=== PATIENT | female | born 1990 | race Caucasian/White ===

== ENCOUNTER 2020-03-06 10:35 | Inpatient (IN) | payer OTHER ==
[~2020-03-06] VITALS: Ht 167.6 cm; Wt 81.6 kg
--- NOTE | ~2020-03-06 | CON ---
[address] [address] CONSULTATION Name: MOUNIKAJOON Room: [place] [address] ADM IN M.Hollie.#: [id number] Admission: 03/06/20 Attend Phys: Edwar Bales MD Discharge: Date of : 86 Report #: [id number] THIS REPORT FOR: //name// cc: [facility] - Clinic physician unknown [facility] - Clinic physician unknown ~ THIS REPORT FOR: //name// CC: Edwar Bales [facility] unknown [facility] DATE OF SERVICE: 03/06/2020 HISTORY OF PRESENT ILLNESS: This is a 30-year-old female patient who was evaluated by me for the possibility of stroke. The patient was discussed with the Emergency Room physician on the phone and then subsequently I came and saw the patient. Other history is variable to me. She tells me that she had speech difficulty as well as right-sided weakness and numbness. She was slow to respond and she was confused and disoriented. I got a history that she was aphasic that time. I am not totally certain about that, but she was definitely confused and had speech difficulty. She provided different history to different individuals. She says all her speech difficulty or any confusion she may has resolved. Her symptoms in the right side is better, but she does not feel completely back to normal. She has a recent diagnosis of COVID. She has been on Xarelto. This is for some blood clot according to her. She has a question of near blacking out. REVIEW OF SYSTEMS: A 14-point review of systems was carried out and according to her, it has been unremarkable except for the present symptomatology and COVID. She does admit to some anxiety. She says she is not on any medication for that. That was a relevant 14-point review of system. PAST MEDICAL HISTORY: Positive for COVID, positive test recently. FAMILY HISTORY: Unremarkable. SOCIAL HISTORY: She does drink alcohol. PHYSICAL EXAMINATION: The patient's examination indicates she is alert, responsive. Her speech looks completely intact to me. She is oriented. Cranial nerve examination; she takes a long time to do the visual field, but I think they are intact the best I can tell and I do not find any definite abnormality. 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 She said she has a normal [place] [address] CONSULTATION Name: JOON RIBERA Room: [address] IN [facility]#: [id number] Admission: 03/06/20 Attend Phys: Edwar Bales MD Discharge: Date of : 86 Report #: [id number] symmetrical. Plantars are mute. There is no cerebellar sign. I did not look at the patient's fundus. Blood pressure is 131/97, respirations 12, pulse is 94, temperature is 98.6. LABORATORY DATA: White count is 8.6. test is negative. IMPRESSION: It is a pretty unusual symptom, which is resolving. The possibility of TIA was considered. I had talk to Emergency Room physician and he was going to do a CT angiogram once after excluding the . That was done. That is basically unremarkable. This patient is not a TPA candidate because she is on anticoagulation. There is nothing to do thrombectomy because no thrombus is found. I am not certain this patient even had a TIA, although it is difficult to exclude if possible. We will get an MRI of the brain. Since she is complaining of arm symptom will get MRI of the C-spine also, they have to follow some COVID protocols and we will see if they can do it. Basically, we will observe this patient at the moment and we will also get await rest of the workup. Dr. Vang will follow up this patient with you from tomorrow. Thank you very much for this referral. By: [id number] MD /aylin
--- NOTE | ~2020-03-06 | EMS ---
[facility] [address] [place] [address] EMS Patient Care Report Name: JOON RIBERA Room: [place] [address] ADM IN M.R.#: [id number] Admission: 03/06/20 Attend Phys: Edwar Bales MD Discharge: Date of : 86 Report #: [id number] THIS REPORT FOR: //name// Report Transmitted: 03/06/2020 12:26 EMS Care Summary GONZALES Ginny RALPH Incident [id number] @ 03/06/2020 10:10 Incident Location [address] [place] [address] [place] [address] Patient JOON RIBERA Female, 30 Years 1990 Patient Address [address] [place] [address] Patient History Other venous embolism and thrombosis, Patient Allergies No known allergies, Chief Complaint Change in responsiveness Disposition Transported No Lights/[place] Dispatch Reason Stroke/CVA Transported To [facility] Narrative Dispatched to address noted for possible stroke. [facility] en route at time noted. Arrived and found female patient in the drivers seat of her car. The patients mother was on scene and stated that her daughter was, "Not acting right". Patient was alert and had a blank stare and was responsive to questions but slowly and with what appeared to be effort. Patient stated that she was sitting in her car and suddenly felt a sharp pain move up her right leg into her back and then into her arm. Patient stated that no she is having difficulty [facility] [address] [place] [address] EMS Patient Care Report Name: JOON RIBERA Room: [place] [address] ADM IN ..#: [id number] Admission: 03/06/20 Attend Phys: Edwar Bales MD Discharge: Date of : 86 Report #: [id number] moving that side of her body and it hurts as well. Patient was negative for any obvious stroke scale indicators and had clear speech. Patient was able to ambulance to stretcher with a stand and pivot and was moved to ambulance after buckled where placed. Once in ambulance, it was agreed on by family and patient that we should transport to the [facility] that has a stroke center, which was [facility], due to [facility] being on high volume. Patient had intact coordination, weakness and pain upon raising her right leg an nystagmus noted when gazing right. Patient stated it was hard for her to move her eyes to the right. Vitals where taken and IV was obtained as noted. Patient stated that when this happened she noticed a glitter like visual disturbance as well. patient stated she was placed on blood thinners on tuesday for a new found, small clot in her right leg. Patient also tested positive for COVID-19. While en route, vitals where taken again. Patient had no major change noted to neurological status and [facility] was alerted for the Stroke activation. Arrived and took patient to room. Patient was moved to bed and RN was given verbal report. RN signed for patient and patient care. Patient was to dizzy to sign at this time. END REPORT EMT-P Andrew Allen Initial Vitals @10:23SpO2: 99, @10:25SpO2: 100, @10:30SpO2: 96, @10:35SpO2: 98, @10:28 @10:21P: 69,R: 16,BP: 152/93, @10:38P: 80,R: 16,BP: 150/110, @10:21GCS: 15, @10:38GCS: 15, @10:16 @10:28Glucose: 116, Assessments @10:16MENTAL:SKIN:HEENT:LUNG SOUNDS:ABDOMEN:PELVIS//GI:EXTREMITIES:PULSE:NEURO: Impression Altered Mental Status Procedures @10:28 cc () Site: Antecubital-LeftResponse: UnchangedSucceeded@10:283-Lead ECGResponse: UnchangedSucceeded@10:32Stroke Alert Timeline 10:10,Call Received 10:10,Dispatch Notified 10:10,[place] [address] EMS Patient Care Report Name: JOON RIBERA Room: [place] [address] ADM IN .R.#: [id number] Admission: 03/06/20 Attend Phys: Edwar Bales MD Discharge: Date of : 86 Report #: [id number] 10:10,Dispatched 10:10,En Route 10:15,On Scene 10:16,At Patient 10:16,BP: / M,PULSE: ,RR: R,SPO2: Ox,ETCO2: ,BG: ,PAIN: ,GCS: , 10:21,BP: 152/93 M,PULSE: 69,RR: 16 R,SPO2: Ox,ETCO2: ,BG: ,PAIN: ,GCS: , 10:21,BP: / M,PULSE: ,RR: R,SPO2: Ox,ETCO2: ,BG: ,PAIN: ,GCS: 15, 10:23,BP: / M,PULSE: ,RR: R,SPO2: 99 Ox,ETCO2: ,BG: ,PAIN: ,GCS: , 10:25,BP: / M,PULSE: ,RR: R,SPO2: 100 Ox,ETCO2: ,BG: ,PAIN: ,GCS: , 10:28, cc Site: Antecubital-Left,Response: UnchangedSucceeded, 10:28,3-Lead ECG,Response: UnchangedSucceeded, 10:28,BP: / M,PULSE: ,RR: R,SPO2: Ox,ETCO2: ,BG: ,PAIN: ,GCS: , 10:28,BP: / M,PULSE: ,RR: R,SPO2: Ox,ETCO2: ,B,PAIN: ,GCS: , 10:30,BP: / M,PULSE: ,RR: R,SPO2: 96 Ox,ETCO2: ,BG: ,PAIN: ,GCS: , 10:30,Depart Scene 10:32,Stroke Alert, 10:35,BP: / M,PULSE: ,RR: R,SPO2: 98 Ox,ETCO2: ,BG: ,PAIN: ,GCS: , 10:38,BP: 150/110 M,PULSE: 80,RR: 16 R,SPO2: Ox,ETCO2: ,BG: ,PAIN: ,GCS: , 10:38,BP: / M,PULSE: ,RR: R,SPO2: Ox,ETCO2: ,BG: ,PAIN: ,GCS: 15, 10:39,At Destination 11:05,Call Closed Disclaimer v1.1 Copyright 2020 [employer] This EMS Care Summary contains data elements from the applicable legal record (which may be displayed differently). It is designed to provide pertinent information for the following purposes: continuity of care, clinical quality, and state data reporting. The complete legal record is available to ED staff and administrators of the receiving hospital in [facility]'s Patient Tracker. All data is provided "as is."
[2020-03-06 10:47] VITALS: BP 131/97
[2020-03-06] MEDS ORDERED: XARELTO15 MG PO (10:50)
[2020-03-06] MEDS ORDERED: ABILIFY 5 MG TAB5 MG PO (10:51)
[2020-03-06 11:01] LABS: ABSOLUTE BASOPHILS 0.1 thou/uL (0.0-0.2); ABSOLUTE EOSINOPHILS 0.1 thou/uL (0.0-0.7); ABSOLUTE MONOCYTES 0.5 thou/uL (0.0-1.2); ABSOLUTE NEUTROPHILS 5.8 thou/uL (1.6-8.1); BASOPHILS 1.1 %; EOSINOPHILS 1.5 %; HEMATOCRIT 41.1 % (37.0-47.0); HEMOGLOBIN 14.1 gm/dL (12.0-15.0); LYMPHOCYTES 23.7 %; MCH 30.2 pg (26.0-34.0); MCHC 34.4 g/dL (28.0-37.0); MCV 87.7 fL (80.0-100.0); MONOCYTES 6.1 %; MPV 6.9 fl. (7.2-11.1); NUCLEATED RBCS 0 /100WBC; PLATELET COUNT* 323 thou/uL (150-400); POLYS 67.6 %; RBC 4.68 mil/uL (4.20-5.00); RDW-CV 13.8 % (10.5-14.5); WBC 8.6 thou/uL (4.0-11.0)
[2020-03-06 11:05] LABS: CALCIUM 8.3 mg/dL (8.5-10.1)
[2020-03-06 11:09] LABS: ALBUMIN 3.6 g/dL (3.4-5.0); TOTAL BILIRUBIN 0.3 mg/dL (<0.1-1.0); TOTAL PROTEIN 7.2 g/dL (6.4-8.2)
[2020-03-06 11:13] LABS: INR 1.2; PROTIME 12.7 Seconds (9.20-11.50)
--- NOTE | 2020-03-06 16:23 | EKG ---
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
[2020-03-06 16:49] VITALS: BP 138/78
[2020-03-06 20:00] VITALS: BP 122/75
[2020-03-06 23:06] LABS: GLYCOHEMOGLOBIN (HGB A1C) 5.6 % (4.8-5.6)
[2020-03-07] VITALS: BP 152/61
[2020-03-07 04:00] VITALS: BP 127/85
[2020-03-07 08:00] VITALS: BP 120/87
[2020-03-07 08:09] VITALS: BP 120/87
[2020-03-07 08:35] LABS: CHOLESTEROL 382 mg/dL (<200); HDL CHOLESTEROL 38 mg/dL (>40); LDL CHOLESTEROL 335 mg/dL (<100); TC:HDL 10.1 Ratio (Not establshd); TRIGLYCERIDE 46 mg/dL (<150); VLDL 9 mg/dL (<40)
[2020-03-07 08:36] LABS: SERUM ASSESSMENT Clear
[2020-03-07 12:59] VITALS: BP 120/87
[2020-03-07 14:33] VITALS: BP 120/87
== END 2020-03-07 14:54 | disposition home or self-care (01) | DRG 72 ==
LOC: M.ERS 10:35 → M.TBA-ER 12:21 → M.2W 12:21
PROVIDERS: Emergency Medicine Emergency Medical Services; ADMIT Internal Medicine; ATTEND Internal Medicine
DX: G93.40 Encephalopathy, unspecified (principal); F41.9 Anxiety disorder, unspecified; Z86.718 Personal history of other venous thrombosis and embolism; Z20.828 Contact with and (suspected) exposure to other viral communicable diseases; Z88.8 Allergy status to other drugs, medicaments and biological substances; Z88.1 Allergy status to other antibiotic agents; Z91.013 Allergy to seafood; Z79.899 Other long term (current) drug therapy

== ENCOUNTER 2020-09-29 10:27 | Observation (INO) | payer BC ==
[~2020-09-29] VITALS: Ht 152.4 cm; Wt 81.6 kg
--- NOTE | ~2020-09-29 | CON ---
[address] [address] CONSULTATION Name: JOON RIBERA Room: [address] M.R.#: [id number] Admission: 09/29/20 Attend Phys: Chica Schaefer MD Discharge: Date of : 86 Report #: [id number] THIS REPORT FOR: cc: [facility] - Clinic physician unknown [facility] - Clinic physician unknown Austin Lane MD ~ DOC #: [id number] Austin Lane MD DATE OF CONSULTATION: 09/30/2020 HISTORY OF PRESENT ILLNESS: This is a 30-year-old female patient who was evaluated by me for pretty unusual kind of symptoms. The best I can tell, she says she was going to pass out, but mainly she means that she did not know what she was doing. She was just dazed. The record in the computer indicates that she also had some chest pain or breast pain. Along with these symptoms, she did not complain of any of that. She said she had visual disturbances to me. She describes visual disturbances as predominantly in the left eye, but subsequently she said she also noticed that in the right eye. She supposed that she lost vision in the left eye, but subsequently she said it was half loss of vision in the left eye and some vision loss was also present in the right eye. She had headache in the occipital area, but she does not know whether it preceded or followed these symptoms. Her visual symptoms are resolved. Headaches have resolved. Now, in fact, her major complaint is that she is having back pain, which radiates down to her both lower extremities. It is not clear when did it start and looks like it happened at about 8:00 yesterday. The history I get is that she was here in 2019 and I reviewed those records. She had presented with somewhat of an unusual kind of symptoms at that time. She had COVID prior to this admission and she was on anticoagulation at that time. She says she is otherwise healthy. She sees a psychiatrist. She has anxiety, but she does not believe her present symptoms are associated with anxiety. I carried out rest of the 14-point review of systems. It does not look like she has any respiratory, GI, , constitutional, dermatological, allergic symptom associated with present symptomatology. PAST MEDICAL HISTORY: Positive for admission here in 2019 and another admission at [place] and I do not have any record and now admission again here with symptoms, which look pretty unusual. I do not know what workup was done in [place]. PAST MEDICAL HISTORY: Positive for COVID last year and is also positive for anxiety. FAMILY HISTORY: [place] [address] CONSULTATION Name: MOUNIKAJOON Room: [address] [place] M.R.#: [id number] Admission: 09/29/20 Attend Phys: Chica Schaefer MD Discharge: Date of : 86 Report #: [id number] SOCIAL HISTORY: It looks like she drinks alcohol several times a week. She will take two shots plus multiple glasses of wine and then looks like she drinks beers on top of that. She complains of irregular periods and she is being worked up by OB. PHYSICAL EXAMINATION: NEUROLOGIC: Indicate that the patient is alert. She is responsive. Her speech, concentration, fund of knowledge and memory is at her baseline. Cranial nerve examination 2-12 indicate that while checking the visual field, she gave correct answer for everything, but does it very slowly and sometime unpredictably. She does not have any facial palsy. When I asked her to raise her hands and keep them there, she complains of a lot of pain. The pain appears to be from the IV site, which she says hurts. When I do the lower extremity examination, she does the same thing and she complained of pain, but she says she has absolutely no position sense on the left leg. She cannot feel touch there. She can feel the position sense and touch normally on the right side. Her reflexes are symmetrical and both ankle jerks are well elicited. I cannot tell about the plantars. On the right side, it appeared to be downgoing. On the left side, it appeared to be mute. I tried to look at the fundus, I could not have a good look at the patient's fundus. Pupils are symmetrical. CARDIAC: Unremarkable. LUNGS: No respiratory difficulty or rhonchi was noticed. VITAL SIGNS: Blood pressure is 148/83, respirations 18, pulse is 63, temperature is 98.1. LABORATORY DATA: White count is normal. She is an obese individual whose hearing and vision looks adequate. Her test is negative. She had a CTA of the head on admission and that is unremarkable. Prior records were reviewed. She has a very high cholesterol the last time, she was admitted. Her LDL actually is low. She did have an MRI and reviewed the films that MRI does not appear to be showing any prominent finding. I agree that there is some T2 hyperintensities, but they do not look typically for MS and look more like migraine, but MS cannot be excluded. IMPRESSION: 1. The patient's neurological symptoms are profound, but are unusual. She has a complete loss of sensations in the left lower extremity because she says she cannot feel the position sense at all and she says position sense is difficult to appreciate in the left upper extremity also. Her MRI last time of the brain and C-spine does not show any pathology, which can explain her symptoms. She has a few small spots there, but that does not explain her symptoms. I think we should do further workup as summarized below. 2. Her cholesterol is very high. That may or may not be related to any of her [facility] [address] [place] [address] CONSULTATION Name: JOON RIBERA Room: [address] [place] Crawford#: [id number] Admission: 09/29/20 Attend Phys: Chica Schaefer MD Discharge: Date of : 86 Report #: [id number] symptoms, but need to be addressed. 3. Intracranial sinus thrombosis always worries in this patient, but they should have been able to look at those sinuses to some extent by CTA of the head. I will discuss that with the radiology. 4. The patient does have significant anxiety and depression. She does go to psychiatrist. Psychological causes are possible, but need to be considered after some further workup extrude further pathology in this patient. RECOMMENDATIONS: 1. I discussed with the patient and the family. I discussed with them the limitation of our hospital and their option of going to a higher level of care to talk to somebody subspecializing in MS to look at the MRI films to see if they think further workup for MS need to be done. 2. I will go ahead and do an MRI of the thoracic and lumbar spine. Presently, I will do the noncontrast study. If that does not show anything, then I think it will be good idea to repeat the MRI of the brain and then we can do contrast study of all 3. 3. If she continues to have symptoms, she may need spinal tap. Looks like Dr. Vang has considered that, but at that time the patient was on anticoagulation. 4. Since we have considered the diagnosis of hemiplegic migraine, we will go ahead and do an echocardiogram to look for any patent foramen ovale. She does have only mildly elevated ____[TIME: 14:01] and symptom does not look typical for vasculitis. Thank you very much for this referral and if you have any questions, please feel free to contact me. Austin Lane MD PK/IRENA/SOT By: [address] MD /nt
--- NOTE | ~2020-09-29 | CON ---
[address] [address] CONSULTATION Name: JOON RIBERA Room: [address] [place] Crawford#: [id number] Admission: 09/29/20 Attend Phys: Chica Schaefer MD Discharge: 10/01/20 Date of : 86 Report #: [id number] THIS REPORT FOR: cc: [facility] - Clinic physician unknown [facility] - Clinic physician unknown Austin Lane MD ~ DOC #: [id number] Austin Lane MD DATE OF CONSULTATION: 10/01/2020 HISTORY OF PRESENT ILLNESS: This patient is having some unusual episodes of syncope. EEG is being done to evaluate the possibility of a seizure. EEG was done by placing the electrodes by standard 10-20 system of electrode placement. Both referential and sequential montages were used for recording. Background activity in this patient's EEG is about 9 Hz and 30 microvolts. The patient went to sleep that is associated with bilateral slowing and vertex sharp waves. Throughout the record, no active epileptiform activity was noticed. IMPRESSION: This patient's EEG is within normal limits. Austin Lane MD PK/HUNTER/BANDAR By: [address] MD /nt
[~2020-09-29 10:27] MED LIST: ABILIFY 5 MG TAB5 MG PO; XARELTO15 MG PO
[2020-09-29 10:28] VITALS: BP 142/69
[2020-09-29 11:17] LABS: ABSOLUTE EOSINOPHILS 0.1 thou/uL (0.0-0.7); ABSOLUTE LYMPHOCYTES 2.9 thou/uL (0.8-5.3); ABSOLUTE MONOCYTES 0.7 thou/uL (0.0-1.2); ABSOLUTE NEUTROPHILS 5.1 thou/uL (1.6-8.1); BASOPHILS 0.5 %; EOSINOPHILS 1.6 %; HEMATOCRIT 41.9 % (37.0-47.0); HEMOGLOBIN 13.4 gm/dL (12.0-15.0); LYMPHOCYTES 32.7 %; MCH 29.1 pg (26.0-34.0); MONOCYTES 7.7 %; MPV 6.9 fl. (7.2-11.1); NUCLEATED RBCS 0 /100WBC; PLATELET COUNT* 298 thou/uL (150-400); POLYS 57.5 %; RBC 4.61 mil/uL (4.20-5.00); WBC 8.9 thou/uL (4.0-11.0)
[2020-09-29 11:29] LABS: URINE BILIRUBIN NEGATIVE (Negative); URINE BLOOD TRACE (Negative); URINE CLARITY CLEAR; URINE COLOR YELLOW; URINE GLUCOSE-RANDOM NEGATIVE (Negative); URINE KETONES NEGATIVE (Negative); URINE LEUKOCYTES-REFLEX NEGATIVE (Negative); URINE NITRITE-REFLEX NEGATIVE (Negative); URINE PROTEIN NEGATIVE (Negative); URINE SPECIFIC GRAVITY 1.025 (1.005-1.030); URINE UROBILINOGEN 0.2 E.U./dl (0.2-1.0)
[2020-09-29 11:37] LABS: AMP/METHAMP Negative (Negative); BARBITURATES Negative (Negative); BENZODIAZEPINES Negative (Negative); COCAINE Negative (Negative); METHADONE Negative (Negative); OPIATES Negative (Negative); PCP Negative (Negative); THC Negative (Negative)
[2020-09-29 11:48] LABS: CALCIUM 8.9 mg/dL (8.5-10.1); CREATININE 0.8 mg/dL (0.6-1.3); POTASSIUM 3.8 mmol/L (3.5-5.1)
[2020-09-29 11:58] LABS: ALBUMIN 3.7 g/dL (3.4-5.0); TOTAL BILIRUBIN 0.3 mg/dL (<0.1-1.0); TOTAL PROTEIN 7.8 g/dL (6.4-8.2)
[2020-09-29 12:28] LABS: APTT 25.1 Seconds (25.0-31.3); PROTIME 10.4 Seconds (9.20-11.50)
[2020-09-29 15:39] VITALS: BP 131/79
--- NOTE | 2020-09-29 15:42 | EKG ---
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1990 Requested By: Arlyn Hinds Order Number: [id number] MD: Boaz Bull Measurements Intervals [place] Rate: 63 P: -1 ND: 125 QRS: 34 QRSD: 95 T: -12 QT: 400 QTc: 410 Interpretive Statements Sinus rhythm Low voltage, precordial leads Nonspecific T abnormalities, anterior leads Compared to ECG 03/06/2020 10:52:41 T-wave abnormality still present Electronically Signed On 09-29-2020 15:42:45 CDT by Boaz Bull [email or web address] <ELECTRONICALLY SIGNED> By: Boaz Bull MD, [facility] 09/29/20 1542 1038 1038 Baoz Bull MD, [facility] /EPI
[2020-09-29 16:00] VITALS: BP 167/104
[2020-09-29 19:20] VITALS: BP 146/91
[2020-09-29 23:15] VITALS: BP 137/67
[2020-09-30 03:55] VITALS: BP 148/84
[2020-09-30 05:19] LABS: HEMATOCRIT 37.9 % (37.0-47.0); HEMOGLOBIN 12.5 gm/dL (12.0-15.0); MCH 29.2 pg (26.0-34.0); MCV 88.5 fL (80.0-100.0); MPV 6.9 fl. (7.2-11.1); RBC 4.28 mil/uL (4.20-5.00); WBC 6.7 thou/uL (4.0-11.0)
[2020-09-30 05:30] LABS: CALCIUM 8.3 mg/dL (8.5-10.1); CREATININE 0.8 mg/dL (0.6-1.3)
[2020-09-30 05:33] LABS: POTASSIUM 5.1 mmol/L (3.5-5.1)
[2020-09-30 07:59] VITALS: BP 148/83
[2020-09-30 16:00] VITALS: BP 112/70
--- NOTE | 2020-09-30 16:06 | 2DMMODE ---
[place] [address] 2 D/M-MODE ECHOCARDIOGRAM Name: JOON RIBERA Room: [address] M.R.#: [id number] Admission: 09/29/20 Attend Phys: Chica Schaefer MD Discharge: Date of : 86 Date of Service: 09/30/20 1606 Report #: [id number] THIS REPORT FOR: cc: [facility] - Clinic physician unknown [facility] - Clinic physician unknown Kalin Acevedo MD [facility] ~ APPROVED REPORT Study performed: 09/30/2020 13:38:19 EXAM: Comprehensive 2D, Doppler, and color-flow Echocardiogram Patient Location: In-Patient Room #: [facility] Status: routine BSA: 1.26 HR: 65 bpm BP: 148/83 mmHg Rhythm: NSR Other Information Study Quality: Good Indications CVA/TIA Echo Enhancing Agent Indication: Rule out Shunt Agent(s) / Amount(s) Used: Agitated Saline 10 cc 2D Dimensions IVSd: 8.75 (7-11mm) LVOT Diam: 19.75 (18-24mm) LVDd: 44.20 mm PWd: 7.86 (7-11mm) Ascending Ao: 25.82 (22-36mm) LVDs: 26.57 (25-40mm) Aortic Root: 26.40 mm Volumes Left Atrial Volume (Systole) LA ESV Index: 31.30 mL/m2 Aortic Valve AoV Peak Demian.: 1.28 m/s AO Peak Gr.: 6.59 mmHg LVOT Max P.81 mmHg AO Mean Gr.: 3.72 mmHg LVOT Mean P.32 [place] [address] 2 D/M-MODE ECHOCARDIOGRAM Name: GABRIEL RIBERAINE Room: [address] M.R.#: [id number] Admission: 09/29/20 Attend Phys: Chica Schaefer MD Discharge: Date of : 86 Date of Service: 09/30/20 1606 Report #: [id number] LVOT Max V: 0.84 m/s AO V2 VTI: 28.32 cm LVOT Mean V: 0.52 m/s BRIANA (VTI): 2.19 cm2 LVOT V1 VTI: 20.29 cm Mitral Valve E/A Ratio: 2.52 MV Decel. Time: 161.61 ms MV E Max Demian.: 1.31 m/s MV PHT: 46.87 ms MVA (PHT): 4.69 cm2 TDI E/Lateral E': 9.36 E/Medial E': 10.08 Medial E' Demian.: 0.13 m/s Lateral E' Demian.: 0.14 m/s Pulmonary Valve PV Peak Demian.: 0.79 m/s PV Peak Gr.: 2.52 mmHg Tricuspid Valve RAP Estimate: 5.00 mmHg TR Peak Gr.: 29.71 mmHg RVSP: 34.00 mmHg PA Pressure: 34.00 mmHg Left Ventricle The left ventricle is normal size. There is normal LV segmental wall motion. There is normal left ventricular wall thickness. Left ventricular systolic function is normal. LVEF is 70%. The left ventricular diastolic function is normal. Right Ventricle The right ventricle is normal size. The right ventricular systolic function is normal. Atria The left atrium size is normal. Cannot rule out intracardiac shunt with bubble study. The right atrium size is normal. Aortic Valve The aortic valve is normal in structure. No aortic regurgitation is present. There is no aortic valvular stenosis. Mitral Valve The mitral valve is normal in structure. Trace mitral regurgitation. No evidence [place] [address] 2 D/M-MODE ECHOCARDIOGRAM Name: JOON RIBERA Room: [address]#: [id number] Admission: 09/29/20 Attend Phys: Chica Schaefer MD Discharge: Date of : 86 Date of Service: 09/30/20 1606 Report #: [id number] Tricuspid Valve The tricuspid valve is normal in structure. Trace tricuspid regurgitation. The RVSP is 30-35 mmHg. Pulmonic Valve The pulmonary valve is normal in structure. There is no pulmonic valvular regurgitation. Great Vessels The aortic root is normal in size. IVC is normal in size and collapses >50% with inspiration. Pericardium There is no pericardial effusion. <Conclusion> The left ventricle is normal size. There is normal left ventricular wall thickness. Left ventricular systolic function is normal. LVEF is 70%. The left ventricular diastolic function is normal. Trace mitral regurgitation. Trace tricuspid regurgitation. The RVSP is 30-35 mmHg. IVC is normal in size and collapses >50% with inspiration. Cannot rule out intracardiac shunt with bubble study. Consider transesophageal echocardiogram if clinically indicated. <ELECTRONICALLY SIGNED> By: Kalin Acevedo MD, FACC 09/30/20 1606 1606 1606 Kalin Acevedo MD, FACC /INF
[2020-09-30 19:55] VITALS: BP 136/80
[2020-09-30 23:38] VITALS: BP 130/85
[2020-10-01 04:11] VITALS: BP 156/102
[2020-10-01 07:50] VITALS: BP 147/97
[2020-10-01] MEDS ORDERED: FLEXERIL PO (12:39)
[2020-10-01 12:56] VITALS: BP 147/97
[2020-10-01 14:33] VITALS: BP 144/82
== END 2020-10-01 16:21 | disposition home or self-care (01) ==
LOC: M.ERS 10:27 → M.TBA-ER 13:32 → M.2W 13:32 → M.TBA-ER 13:32 → M.2W 15:39
PROVIDERS: Nurse Practitioner Family; ADMIT Family Medicine; ATTEND Family Medicine
DX: H54.62 Unqualified visual loss, left eye, normal vision right eye (principal); Z20.822 Contact with and (suspected) exposure to COVID-19; F41.9 Anxiety disorder, unspecified; F32.9 Major depressive disorder, single episode, unspecified; R42 Dizziness and giddiness; R07.89 Other chest pain; M54.2 Cervicalgia; G40.909 Epilepsy, unspecified, not intractable, without status epilepticus; R20.0 Anesthesia of skin; R51.9 Headache, unspecified; E78.00 Pure hypercholesterolemia, unspecified; E78.5 Hyperlipidemia, unspecified; E66.9 Obesity, unspecified; Z86.73 Personal history of transient ischemic attack (TIA), and cerebral infarction without residual deficits; Z86.718 Personal history of other venous thrombosis and embolism